=== PATIENT | female | born 1990 | race Two or more races ===

== ENCOUNTER 2018-12-04 09:53 | Emergency (ER) | payer OTHER ==
[~2018-12-04] VITALS: Ht 157.5 cm; Wt 95.3 kg
[2018-12-04] MEDS ORDERED: BCP PO (10:04)
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
[2018-12-04 10:10] VITALS: BP 118/78
[2018-12-04] MEDS ORDERED: ACETAMINOPHEN500 M3 ORAL (10:28)
[2018-12-04] MEDS ORDERED: Acetaminophen 500mg (ES) tab ORAL ONE (10:30)
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
[2018-12-04 11:06] VITALS: BP 124/86
== END 2018-12-04 11:08 | disposition home or self-care (01) ==
LOC: EMR 10:50
DX: S00.93XA Contusion of unspecified part of head, initial encounter (principal); M25.511 Pain in right shoulder; Y04.2XXA Assault by strike against or bumped into by another person, initial encounter; Y92.239 Unspecified place in hospital as the place of occurrence of the external cause; Y99.0 Civilian activity done for income or pay; Z88.0 Allergy status to penicillin
CPT/HCPCS: 99282